=== PATIENT | female | born 1990 | race Caucasian/White ===

== ENCOUNTER 2022-09-09 11:24 | Outpatient (REF) | payer OTHER, SELFPAY | END 2022-09-09 11:25 | disposition home or self-care (01) | LOC: HO.LNP 11:24 | PROVIDERS: Visit Provider Nurse Practitioner Family | DX: N39.0 Urinary tract infection, site not specified (principal) | CPT/HCPCS: 87086; 87088; 87186 ==

== ENCOUNTER 2022-10-15 09:58 | Outpatient (RCR) | payer OTHER, SELFPAY ==
--- NOTE | 2022-10-15 10:51 | MHC.PT.EP ---
[facility] [place] Office [place] Office [place] Office [address] [phone] F: [phone] F: [phone] F: [phone] F: [phone] Physical Therapy Plan of Care Date of Evaluation: Date of Surgery: NA Diagnosis: H/O torn meniscus of R knee Pronouns- they/them Assessment: Callum is a 32 year assigned female at pt with pronoun they/them referred to PT for h/o torn meniscus of R knee'. They deny having trauma or fall. They had PT in [place] for 5 months. PT was d/c as they moved to [facility]. They stopped exercising since relocation and the pain has gotten worse. On PT examination presented TTP over quad, R IT band and joint line, all knee ROM, decreased length of ITB and quad, decreased LE strength and altered posture and gait. They are independent with self care activities but have pain with stair negotiation, kneeling, squatting and lifting weights. 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 They would benefit from skilled PT to address the aforementioned impairments and improve tolerance to functional activities. Frequency and Duration: The patient will be seen 2/week for 5 weeks Short Term Goals: 1. Pt will have 50% decrease in pain which will enable to them to tolerate sitting with LE straight in 2 weeks. 2. 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 Pt will demonstrate an increase in muscle strength by 1 grade which will enable them to negotiate stairs without pain in 4 weeks. 2. Pt will be independent with [facility] for symptom management and maintenance following d/c in 5 weeks. Treatment Plan: Modalities to reduce pain, spasms and effusion. Manual therapy to restore motion and function. Therapeutic exercise to improve strength and flexibility. Neuromuscular re-education for posture and balance. Therapeutic activities to return to functional activities of daily living. Electronically signed by: Vandana Fischer PT DPT Please sign and return to therapist. Thank you for your referral.
== END 2022-12-03 13:37 | disposition home or self-care (01) ==
LOC: HO.PT 09:58
PROVIDERS: PCP Family Medicine; Visit Provider Nurse Practitioner Family
DX: Z87.828 Personal history of other (healed) physical injury and trauma (principal)
CPT/HCPCS: 97110; 97161

== ENCOUNTER 2022-10-31 14:21 | Outpatient (REF) | payer OTHER, SELFPAY ==
[2022-10-31 16:14] LABS: Influenza A PCR NEGATIVE (Negative); Influenza B PCR NEGATIVE (Negative); Resp Syncy Virus RNA Qual PCR NEGATIVE (Negative); SARS COV2 PCR INHOUSE NEGATIVE (Negative)
== END 2022-10-31 14:22 | disposition home or self-care (01) ==
LOC: HO.LNP 14:21
PROVIDERS: Visit Provider Nurse Practitioner Family
DX: R09.89 Other specified symptoms and signs involving the circulatory and respiratory systems (principal); Z20.822 Contact with and (suspected) exposure to COVID-19
CPT/HCPCS: 0241U

== ENCOUNTER 2023-01-23 09:26 | Outpatient (REF) | payer OTHER, SELFPAY ==
[2023-01-23 11:59] LABS: Hematocrit 38.5 % (37.0-47.0); Hemoglobin 12.3 g/dl (12.0-16.0); Mean Corpuscular HGB Conc 31.9 g/dl (31.0-35.0); Mean Corpuscular Hemoglobin 25.9 pg (27.0-33.0); Mean Corpuscular Volume 81.1 fL (80.0-98.0); Mean Platelet Volume 12.6 fL (9.4-12.3); Platelet Count 222 X10*3/uL (160-400); Red Blood Count 4.75 X10*6/uL (4.20-5.50); Red Cell Distribution Width 14.6 % (11.0-16.0)
[2023-01-23 12:20] LABS: Alanine Aminotransferase 11 U/L (0-31); Albumin Level 4.3 g/dL (3.5-5.0); Alkaline Phosphatase 76 U/L (39-117); Anion Gap 13 (12-20); Aspartate Amino Transferase 17 U/L (5-31); Bilirubin Total 0.5 mg/dL (0.0-1.0); Blood Urea Nitrogen 13 mg/dL (9-16); Calcium 9.3 mg/dL (8.4-10.2); Carbon Dioxide 24 mmol/L (22-29); Chloride 106 mmol/L (96-108); Cholesterol 212 mg/dL; Estimated Glomerular Filt Rate > 60; Glucose Fasting 84 mg/dL (60-99); HDL Cholesterol 60 mg/dL; LDL Cholesterol Calculated 134 mg/dl; Potassium 4.5 mmol/L (3.3-5.1); Sodium 138 mmol/L (135-145); Total Protein 7.2 g/dL (6.5-8.0); Triglycerides 90 mg/dL
[2023-01-23 12:35] LABS: TSH reflex Free T4 2.05 uIU/mL (0.32-4.0)
== END 2023-01-23 09:27 | disposition home or self-care (01) ==
LOC: HO.WFDLDS 09:26
PROVIDERS: Visit Provider Nurse Practitioner Family
DX: Z00.00 Encounter for general adult medical examination without abnormal findings (principal)
CPT/HCPCS: 36415; 80053; 80061; 84443; 85027

== ENCOUNTER 2023-05-20 07:29 | Outpatient (REF) | payer OTHER, SELFPAY ==
--- NOTE | ~2023-05-20 | XR_ITS ---
EXAMINATION: XR KNEE, RIGHT CLINICAL INFORMATION: Pain in right knee COMPARISON: None available. TECHNIQUE: Three views of the right knee. FINDINGS: Trace knee effusion. Normal alignment. No fracture or dislocation or acute osseous abnormalities seen. XR/XR knee RT 3V IMPRESSION: Trace knee effusion. Otherwise normal examination. No acute osseous abnormalities.
== END 2023-05-20 07:30 | disposition home or self-care (01) ==
LOC: HO.HOSX 07:29
PROVIDERS: Visit Provider Physician Assistant
DX: M25.561 Pain in right knee (principal); M25.562 Pain in left knee
CPT/HCPCS: 73562; 99202

== ENCOUNTER 2023-05-20 10:26 | Outpatient (AMB) | payer OTHER, SELFPAY ==
--- NOTE | 2023-05-20 10:45 | MHC.OFFVIS ---
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 Patient reports ongoing pain/buckling in her right knee for 3 years. They states that that their pain is worse when doing down the stairs, cold/wet weather. Pain is on the lateral and medial aspects of the knee. They have had cortisone injections in the past which gave him minimal relief. That have also done physical therapy for several months which aggravated there pain. They state that their knee will give out several times per day. They have tried wearing a pull-up sleeve brace which has given them minimal relief. Allergies Seasonal Allergies Allergy (Mild, Verified 05/20/23 10:46) Unknown mushroom Adverse Reaction (Unknown, Verified 05/20/23 10:46) Unknown Penicillins Adverse Reaction (Unknown, Verified 05/20/23 10:46) Unknown bee sting Allergy (Mild, Uncoded 01/22/23 11:36) Hives cat saliva Allergy (Mild, Uncoded 01/22/23 11:36) Hives dog Allergy (Mild, Uncoded 01/22/23 11:36) Hives Medication List - Last Reconciled 05/20/23 by Dawood Edward MD dextroamphetamine-amphetamine 10 mg ER (Adderall XR) 1 cap PO QAM dextroamphetamine-amphetamine 5 mg 1 tab PO DAILY dextroamphetamine-amphetamine 5 mg ER (Adderall XR) 1 cap PO QAM epinephrine (EpiPen 2-Júnior) 0.3 mg (0.3 mL) IM Q4H PRN 30 days mirtazapine 15 mg PO BEDTIME omeprazole 40 mg PO DAILY PFSH Medical History Autism spectrum disorder PTSD (post-traumatic stress disorder) Surgical History H/O gastric sleeve Social History Housing: House Patient Tobacco Use Status: Never used Tobacco e-Cigarette/Vaping Use: Never Used Second Hand Smoke Exposure: No service: No Current occupational status: unemployed Current occupational exposures/hazards: No Cognitive needs: No Hearing needs: No Vision needs: No Physical Exam Extrem Other: Bilateral lower extremity examination shows good capillary refill, no skin lesions noted, normal sensation light touch Right knee examination shows a minimal effusion, minimal crepitus with range of motion, tenderness along the medial and lateral joint lines, positive Annetta's test, no instability Results Reviewed Results Reviewed: X-rays of the patient's right knee taken today show mild diffuse joint space narrowing, no acute bony abnormalities Assessment & Plan Assessment & Plan (1) Right knee pain: Code(s): M25.561 - Pain in right knee Plan The patient presents with right knee pain and mechanical symptoms most likely due to a medial meniscus tear. Thus, I will send the patient for an MRI of their right knee for further evaluation. They will follow up with me after the imaging study is completed. Feel free to contact me at any time should questions regarding their orthopedic management arise. I spent 22 minutes in reviewing the patient's records and imaging studies, seeing the patient and documenting in the medical record. Orders: Orders XR knee RT 2V Today M25.569 - Pain in unspecified knee Ta-Karey Meuse, PA-C XR knee standing BI Today M25.561 - Pain in right knee, M25.562 - Pain in left knee Ta-Karey Meuse, PA-C XR knee RT 3V Today M25.561 - Pain in right knee Dawood Edward MD Coding Level of Care Code New Pt Level 2 (53405) Diagnoses Right knee pain M25.561
== END 2023-05-20 11:15 | disposition home or self-care (01) ==
PROVIDERS: PCP Nurse Practitioner Family; Visit Provider Orthopaedic Surgery
DX: M25.561 Pain in right knee (principal)
CPT/HCPCS: 99202

== ENCOUNTER 2023-09-22 14:23 | Outpatient (REF) | payer MEDICAID, SELFPAY ==
--- NOTE | ~2023-09-22 | MR_ITS ---
EXAMINATION: MR KNEE WITHOUT CONTRAST, RIGHT CLINICAL INFORMATION: Right knee pain and swelling. Buckling. COMPARISON: Right knee radiographs dated 05/20/2023. TECHNIQUE: MRI of the knee without contrast was performed using routine sequences on a high-field scanner. FINDINGS: MENISCI: Medial Meniscus: Intact Lateral Meniscus: Intact LIGAMENTS: Cruciate: Intact Collateral: Intact EXTENSOR MECHANISM: Intact quadriceps and patellar tendons. Mild patella ruma. Elevated TT-TG distance measuring 1.5 cm. The patella is currently slightly laterally subluxed. Minimal edema in the superolateral aspect of Hoffa's fat pad, which can be seen the setting of patellar tendon-lateral femoral condyle friction syndrome. ARTICULAR CARTILAGE/BONE: Patellofemoral Compartment: Intact articular cartilage. Medial Compartment: Intact articular cartilage. Lateral Compartment: Intact articular cartilage. JOINT FLUID AND BURSAE: Trace joint effusion. MR/MR knee RT wo con IMPRESSION: 1. No acute meniscal or ligamentous injury. 2. Mild patella ruma. Elevated TT-TG distance measuring 1.5 cm. The patella is currently slightly laterally subluxed. Minimal edema in the superolateral aspect of Hoffa's fat pad, which can be seen the setting of patellar tendon-lateral femoral condyle friction syndrome. 3. Trace joint effusion.
== END 2023-09-22 14:24 | disposition home or self-care (01) ==
LOC: HO.MRI 14:23
PROVIDERS: PCP Nurse Practitioner Family; Visit Provider Orthopaedic Surgery
DX: M25.561 Pain in right knee (principal)
CPT/HCPCS: 73721

== ENCOUNTER 2023-10-01 14:43 | Outpatient (AMB) | payer MEDICAID, SELFPAY ==
--- NOTE | 2023-10-01 14:53 | A.OFFVIS_ITS ---
Intake Intake Visit Reasons: OV-Right knee MRI review Intake Note: Callum is a 33 year old who presents today for an MRI review of their right knee. The patient states that they have had ongoing pain and buckling in her right knee for approximately 3 years. The patient did go to physical therapy in [place]. That therapy seem to help significantly. They have been to therapy locally here but they have not gotten relief from that therapy. Allergies Seasonal Allergies Allergy (Mild, Verified 05/20/23 10:46) Unknown mushroom Adverse Reaction (Unknown, Verified 05/20/23 10:46) Unknown Penicillins Adverse Reaction (Unknown, Verified 05/20/23 10:46) Unknown bee sting Allergy (Mild, Uncoded 01/22/23 11:36) Hives cat saliva Allergy (Mild, Uncoded 01/22/23 11:36) Hives dog Allergy (Mild, Uncoded 01/22/23 11:36) Hives [facility] Medical History Autism spectrum disorder PTSD (post-traumatic stress disorder) Surgical History H/O gastric sleeve Social History Housing: House Patient Tobacco Use Status: Never used Tobacco e-Cigarette/Vaping Use: Never Used Second Hand Smoke Exposure: No service: No Current occupational status: unemployed Current occupational exposures/hazards: No Cognitive needs: No Hearing needs: No Vision needs: No Physical Exam Extrem Other: Right knee examination shows tenderness along her medial and lateral joint lines, discomfort with range of motion Results Reviewed Results Reviewed: MRI of the patient's right knee shows no evidence of ligament or meniscus tearing, there is lateral subluxation and lateral tilt of the patella, no acute bony Assessment & Plan Assessment & Plan (1) Subluxation of right patella: Code(s): S83.001A - Unspecified subluxation of right patella, initial encounter Plan: The patient presents with right knee pain and mechanical symptoms due to lateral patellar subluxation. Thus, I did give the patient another prescription to go to physical therapy. I did recommend that they go to [facility] in [place]. The patient will follow up with me on an as-needed basis should there symptoms not plateau at an unacceptable level over the next few months. Feel free to call me at any time should questions regarding the orthopedic management arise. I spent 20 minutes in reviewing the patient's records and imaging studies, seeing the patient and documenting in the medical record. Coding Level of Care Code Est Pt Level 2 (60065) Diagnoses Subluxation of right patella S83.001A
== END 2023-10-01 15:35 | disposition home or self-care (01) ==
PROVIDERS: PCP Nurse Practitioner Family; Visit Provider Orthopaedic Surgery
DX: S83.001A Unspecified subluxation of right patella, initial encounter (principal)
CPT/HCPCS: 99212

== ENCOUNTER → 2023-10-01 14:43 | Outpatient (BNVA) | payer MEDICAID, SELFPAY | PROVIDERS: PCP Nurse Practitioner Family; Visit Provider Orthopaedic Surgery | DX: S83.001A Unspecified subluxation of right patella, initial encounter (principal) | CPT/HCPCS: 99212 ==